=== PATIENT | female | born 1980 | race Caucasian/White ===

== ENCOUNTER 2018-06-20 14:52 | Emergency (ER) | payer MEDICAID ==
[~2018-06-20] VITALS: Ht 172.7 cm; Wt 104.5 kg
[~2018-06-20 14:52] MED LIST: PERCOCET 5/3251 TA1 PO
[2018-06-20 14:54] VITALS: Ht 172.7 cm; Wt 104.5 kg
[2018-06-20 15:42] LABS: HCG URINE NEGATIVE (NEGATIVE)
[2018-06-20 15:50] LABS: UDS - AMPHET POSITIVE QUAL (NEGATIVE); UDS - BARB NEGATIVE QUAL (NEGATIVE); UDS - BENZO NEGATIVE QUAL (NEGATIVE); UDS - COCAINE NEGATIVE QUAL (NEGATIVE); UDS - OPIATE NEGATIVE QUAL (NEGATIVE); UDS - PCP NEGATIVE QUAL (NEGATIVE); UDS - THC POSITIVE QUAL (NEGATIVE)
[2018-06-20 15:57] LABS: APPEARANCE HAZY (CLEAR); COLOR YELLOW (YELLOW)
[2018-06-20 15:58] LABS: BILIRUBIN NEGATIVE (NEGATIVE); GLUCOSE NEGATIVE (NEGATIVE); KETONE NEGATIVE (NEGATIVE); NITRITE POSITIVE (NEGATIVE); PROTEIN NEGATIVE (NEGATIVE); UROBILINOGEN NORMAL (NORMAL)
[2018-06-20 15:59] LABS: RED CELLS - URINE 0-5 /hpf (0-5); WHITE CELLS - URINE 0-5 /hpf (0-5)
[2018-06-20 16:00] LABS: BACTERIA MODERATE /hpf (NONE SEEN); EPITHELIAL CELLS 0-5 /hpf (0-5)
[2018-06-20 16:03] LABS: BASOPHILS 0.2 % (0-2); EOSINOPHILS 1.2 % (0-7); HEMATOCRIT 33.2 % (36.0-48.0); HEMOGLOBIN 10.6 g/dL (12-16); IMMATURE GRANULOCYTES 0.1 % (0-5); LYMPHOCYTES 14.4 % (15-50); MCH 26.2 pg (26.0-34.0); MCHC 31.9 g/dL (31.0-37.0); MCV 82.2 fL (80.0-100.0); MEAN PLATELET VOLUME 10.2 fL (7.4-10.4); MONOCYTES 8.5 % (2-11); NEUTROPHILS 75.6 % (40-80); PLATELET COUNT 132 10x3/uL (130-400); RBC 4.04 10x6/uL (4.00-5.40); RDW 17.1 % (11.5-14.5); WBC 9.2 10x3/uL (4.8-10.8)
[2018-06-20 16:23] LABS: ALBUMIN 2.8 g/dL (3.4-5.0); ALKALINE PHOSPHATASE 68 U/L (46-116); ALT (SGPT) 12 U/L (10-68); CALC OSMOLALITY 279 mosm/kg (275-300); CALCIUM 7.9 mg/dL (8.5-10.1); CHLORIDE - SERUM 108 mmol/L (98-107); CREATININE - SERUM 0.8 mg/dL (0.6-1.3); GLUCOSE 99 mg/dL (74-106); SODIUM 141 mmol/L (136-145); UREA NITROGEN 10 mg/dL (7-18); eGFR NON AFRICAN AMERICAN 86 mL/min (90-120)
[2018-06-20] MEDS ORDERED: OMNICEF300 MG PO (17:14)
[2018-06-20] MEDS ORDERED: FLAGYL500 MG PO (17:14)
[2018-06-20] MEDS ORDERED: HYDROCODON-ACE1 EAC7 PO (17:38)
[2018-06-20 18:07] VITALS: BP 132/84
[2018-06-24 10:23] LABS: CHLAMYDIA TRACHOMATIS, NAA Negative (Negative)
== END 2018-06-20 18:10 | disposition home or self-care (01) ==
LOC: D.ER 14:52
PROVIDERS: Family Medicine
DX: A59.9 Trichomoniasis, unspecified (principal); N39.0 Urinary tract infection, site not specified; Y04.2XXA Assault by strike against or bumped into by another person, initial encounter; Y93.89 Activity, other specified; Y92.019 Unspecified place in single-family (private) house as the place of occurrence of the external cause

== ENCOUNTER 2019-10-29 13:05 | Emergency (ER) | payer MEDICAID ==
[~2019-10-29] VITALS: Ht 172.7 cm; Wt 100.5 kg
[~2019-10-29 13:05] MED LIST changes: +FLAGYL500 MG PO; +HYDROCODON-ACE1 EAC7 PO; +OMNICEF300 MG PO
[2019-10-29 13:14] VITALS: Ht 172.7 cm; Wt 100.5 kg
[2019-10-29 16:04] LABS: BASOPHILS 0.2 % (0-2); EOSINOPHILS 1.8 % (0-7); HEMATOCRIT 33.9 % (36.0-48.0); HEMOGLOBIN 10.8 g/dL (12-16); LYMPHOCYTES 14.8 % (15-50); MCH 26.2 pg (26.0-34.0); MCHC 31.9 g/dL (31.0-37.0); MCV 82.1 fL (80.0-100.0); MEAN PLATELET VOLUME 10.4 fL (7.4-10.4); MONOCYTES 7.1 % (2-11); NEUTROPHILS 76.1 % (40-80); RBC 4.13 10x6/uL (4.00-5.40); RDW 17.1 % (11.5-14.5); WBC 9.5 10x3/uL (4.8-10.8)
[2019-10-29 16:05] LABS: PLATELET COUNT 177 10x3/uL (130-400)
[2019-10-29 16:14] LABS: ANION GAP 13.6 mmol/L (8-16); CALCIUM 8.1 mg/dL (8.5-10.1); CARBON DIOXIDE 26.3 mmol/L (21.0-32.0); CREATININE - SERUM 0.9 mg/dL (0.6-1.3); POTASSIUM - SERUM 3.9 mmol/L (3.5-5.1)
[2019-10-29 16:20] LABS: ALBUMIN 3.3 g/dL (3.4-5.0); BILIRUBIN - TOTAL 0.19 mg/dL (0.2-1.3); C-REACTIVE PROTEIN 0.8 mg/dL (0.0-0.9)
[2019-10-29] MEDS ORDERED: CLEOCIN HCL300 MG PO (17:07)
[2019-10-29] MEDS ORDERED: SMZ-TMP DS 800-1 TAB PO (17:07)
[2019-10-29 18:13] VITALS: BP 136/84
== END 2019-10-29 18:13 | disposition home or self-care (01) ==
LOC: D.ER 13:05
PROVIDERS: Family Medicine
DX: L03.211 Cellulitis of face (principal); K02.9 Dental caries, unspecified